=== PATIENT | female | born 1975 | race Two or more races ===

== ENCOUNTER → 2020-01-22 | Day surgery (SDC) | payer BC ==
[~2020-01-22] MED LIST: FENTANYL CITRATE/PF 100MCG/2 ML INJ ONE; HEPARIN 500 UNITS/5ML MDV INJ NR; LOSARTAN POTAS100 MG PO; LYRICA75 MG PO; METOPROLOL SUCC50 MG PO; MIDAZOLAM HCL 2 MG/2 ML VIAL ONE; NIFEDIPINE10 MG PO; OMEPRAZOLE40 MG PO; PROPOFOL IV EMULSION 10 MG/ML 50 ML VIAL ONE; ROPINIROLE HC0.25 MG PO; SODIUM CHLORIDE 0.9% 500ML 500 ML ONE
--- OUTSIDE RECORDS SUMMARY | 2020-01-22 07:06 | XMS REPORT ---
Author Author [facility] Address Unknown Phone Unavailable Care Team Providers Care Academic Affairs Manager Name Role Phone Unavailable Unavailable Payers Payer Name Policy Type Policy Number Effective Date Expiration Date Problems This patient has no known problems. Allergies, Adverse Reactions, Alerts Allergy Name Allergy Type Status Severity Reaction(s) Onset Date Inactive Date Treating Clinician Comments hydrocodone DA Active SV 2019-12-13 00:00:00 hydrocodone DA Active SV 2019-04-18 00:00:00 No Known Contrast Allergies DA Active U 2007-02-06 00:00:00 No Known Drug Allergies DA Active U 2007-02-06 00:00:00 No Known Food Allergies DA Active U 2007-02-06 00:00:00 No Known Other Allergies DA Active U 2007-02-06 00:00:00 Medications This patient has no known medications. Results Test Description Test Time Test Comments Text Results Atomic Results Result Comments COMPREHENSIVE METABOLIC PANEL 2020-01-10 10:36:00 SODIUM (test code=NA) 135 MMOL/L 136-143 POTASSIUM (test code=K) 4.3 MMOL/L 3.5-5.1 CHLORIDE (test code=CL) 98 MMOL/L 98-107 CARBON DIOXIDE (test code=CO2) 24 mmol/L 24-31 GLUCOSE (test code=GLU) 139 mg/dL 70-104 BLOOD UREA NITROGEN (test code=BUN) 22.8 MG/DL 7.0-21.0 GLOMERULAR FILTRATION RATE (test code=GFR) 14 >60 The estimated glomerular filtration rate is computed usingpatient race, age (>18), sex, and serum creatinine. If anyof the needed data elements are missing the Laboratory cannot compute an estimation of the glomerular filtration rate. CREATININE (test code=CREAT) 4.3 mg/dL 0.8-1.5 TOTAL PROTEIN (test code=PROT) 7.6 g/dL 6.3-8.3 ALBUMIN (test code=ALB) 2.9 G/DL 3.5-5.0 CALCIUM (test code=CA) 8.9 mg/dL 8.8-10.2 BILIRUBIN TOTAL (test code=BILT) 0.2 mg/dL 0.2-1.0 SGOT/AST (test code=AST) 8 IU/L 10-34 SGPT/ALT (test code=ALT) 7 U/L 10-36 ALKALINE PHOSPHATASE (test code=ALKP) 68 U/L 32-104 PROTHROMBIN [id number] 10:15:00* Test Item Value Reference Range Comments PROTHROMBIN TIME PATIENT (test code=PTP) 11.3 SECONDS 10.3-12.9 INTERNATIONAL NORMAL RATIO (test code=INR) 0.97 INR UNIT 0.9-1.11 The INR is useful only for monitoring anticoagulant therapy.It may be unreliable in the initial phase of antigoagulationand in unstable patients. Indication for Anticoagulation Recommended INR 1. Prevention of venous thomboembolism 2.0-3.0in high-risk patients; treatment of venousthrombosis and pulmonary embolism aftera course of heparin; prevention of systemicembolism in a variety of conditions, including atrial fibrillation and prothetic tissue heart valves, 2. Prosthetic mechanical heart valves; 2.5-3.5recurrent systemic embolism. THROMBOPLASTIN TIME [id number] 10:15:00* Test Item Value Reference Range Comments THROMBOPLASTIN TIME PARTIAL (test code=PTT) 102.9 SECONDS 26.0-35.9 Critical Value reported toFirst Name:VIRAL Last Name:FWARTRESULTS READ BACK AND VERIFIEDby AMARIS, on 01/10/20, @ 1015.INTERPRETATIVE DATA:Therapeutic range: Unfractionated heparin:47 - 71 seconds Argatroban:1.5 to 3 times the baseline PTT HCG SERUM [id number] 10:14:00* Test Item Value Reference Range Comments HCG SERUM QUAL (test code=HCGQL) NEGATIVE NEGATIVE DATE OF LAST MENSTRUAL PERIOD: 11/14/16COMMENTS: PT ON DEPO SHOT; UNABLE TO URIN ATE DUE TO ESRDCBC W/AUTO [id number] 09:42:00* Test Item Value Reference Range Comments WHITE BLOOD CELL (test code=WBC) 18.1 x10 3/uL 4.8-10.8 RED BLOOD CELL (test code=RBC) 3.30 x10 6/uL 4.20-5.40 HEMOGLOBIN (test code=HGB) 9.2 g/dL 14.5-20 HEMATOCRIT (test code=HCT) 30.2 % 37.0-47.0 MEAN CELL VOLUME (test code=MCV) 91.5 fL 81.0-99.0 MEAN CELL HGB (test code=MCH) 27.9 pg 27-31 MEAN CELL HGB CONCENTRATION (test code=MCHC) 30.5 G/DL 33-36.5 RED CELL DISTRIBUTION WIDTH (test code=RDW) 13.7 % 12.9-16.9 PLATELET COUNT (test code=PLT) 330 150-440 MEAN PLATELET VOLUME (test code=MPV) 9.6 fL 8.9-12.4 NEUTROPHIL % (test code=NT%) 78.8 % 42.2-75.2 LYMPHOCYTE % (test code=LY%) 13.5 % 20.5-51.1 MONOCYTE % (test code=MO%) 4.4 % 1.7-9.3 EOSINOPHIL % (test code=EO%) 2.3 % 0.0-7.0 BASOPHIL % (test code=BA%) 0.6 % 0-2.5 NEUTROPHIL # (test code=NT#) 14.29 x10 3/uL 1.80-7.70 LYMPHOCYTE # (test code=LY#) 2.45 x10 3/uL 1.00-4.80 MONOCYTE # (test code=MO#) 0.80 x10 3/uL 0.00-0.80 EOSINOPHIL # (test code=EO#) 0.42 x10 3/uL 0.00-0.45 BASOPHIL # (test code=BA#) 0.10 x10 3/uL 0.0-0.20 [id number] 17:18:00* Test Item Value Reference Range Comments GLUBED (test code=GLUBED) 150 MG/DL 70-105 [id number] 12:31:00* Test Item Value Reference Range Comments GLUBED (test code=GLUBED) 170 MG/DL 70-105 - XR FLUOROSCOPY 0-60 [id number] 08:45:00Patient Name: MEHDI GALLEGO Unit No: [id number] EXAMS: CPT CODE: [id number] XR FLUOROSCOPY 0-60 MIN 51549 R16 EXAM: - XR FLUOROSCOPY 0-60 MIN HISTORY: Tunneled catheter placement COMPARISON: Chest 2 views 12/12/2019 IMPRESSION: 1 intraoperative fluoroscopic image was obtained after placement of a right internal jugular tunneled dialysis catheter. The tip projects over the cavoatrial junction. See operative report for further details. Total fluoroscopy: 4 seconds, 1 mGy at 0845 Reported and signed by: BELKIS RUCKER M.D. CC: Alba Whitten; Allison Richardson MD Technologist: CESAR WILKERSON RT(R) Fluoro Time: DAP (Gy m2): Air Kerma (mGy): Trscr Dt/Tm: 12/14/2019 (0845) by:[email or web address] Printed Date/Time: 12/14/2019 (0848) Name: MEHDI AGLLEGO [facility] Phys: Alba Moran [address] : 1975 Age: 44 Sex: [place] [address] Loc: P.0721 1 Exam Date: 12/13/2019 Status: ADM IN PH: FAX: PAGE 1 Signed Report [id number] 08:33:00* Test Item Value Reference Range Comments GLUBED (test code=GLUBED) 139 MG/DL 70-105 [id number] 06:33:00* Test Item Value Reference Range Comments GLUBED (test code=GLUBED) 153 MG/DL 70-105 BASIC METABOLIC [id number] 06:25:00* Test Item Value Reference Range Comments SODIUM (test code=NA) 140 MMOL/L 136-143 POTASSIUM (test code=K) 4.4 MMOL/L 3.5-5.1 CHLORIDE (test code=CL) 100 MMOL/L 98-107 CARBON DIOXIDE (test code=CO2) 27 mmol/L 24-31 GLUCOSE (test code=GLU) 167 mg/dL 70-104 BLOOD UREA NITROGEN (test code=BUN) 28.7 MG/DL 7.0-21.0 GLOMERULAR FILTRATION RATE (test code=GFR) 13 >60 The estimated glomerular filtration rate is computed usingpatient race, age (>18), sex, and serum creatinine. If anyof the needed data elements are missing the Laboratory cannot compute an estimation of the glomerular filtration rate. CREATININE (test code=CREAT) 3.9 mg/dL 0.8-1.5 CALCIUM (test code=CA) 8.0 mg/dL 8.8-10.2 CBC W/AUTO [id number] 05:55:00* Test Item Value Reference Range Comments WHITE BLOOD CELL (test code=WBC) 15.6 x10 3/uL 4.8-10.8 RED BLOOD CELL (test code=RBC) 2.85 x10 6/uL 4.20-5.40 HEMOGLOBIN (test code=HGB) 8.0 g/dL 14.5-20 HEMATOCRIT (test code=HCT) 27.3 % 37.0-47.0 MEAN CELL VOLUME (test code=MCV) 95.8 fL 81.0-99.0 MEAN CELL HGB (test code=MCH) 28.1 pg 27-31 MEAN CELL HGB CONCENTRATION (test code=MCHC) 29.3 G/DL 33-36.5 RED CELL DISTRIBUTION WIDTH (test code=RDW) 14.6 % 12.9-16.9 PLATELET COUNT (test code=PLT) 300 150-440 MEAN PLATELET VOLUME (test code=MPV) 9.7 fL 8.9-12.4 NEUTROPHIL % (test code=NT%) 77.4 % 42.2-75.2 LYMPHOCYTE % (test code=LY%) 13.2 % 20.5-51.1 MONOCYTE % (test code=MO%) 5.6 % 1.7-9.3 EOSINOPHIL % (test code=EO%) 2.8 % 0.0-7.0 BASOPHIL % (test code=BA%) 0.6 % 0-2.5 NEUTROPHIL # (test code=NT#) 12.02 x10 3/uL 1.80-7.70 LYMPHOCYTE # (test code=LY#) 2.06 x10 3/uL 1.00-4.80 MONOCYTE # (test code=MO#) 0.87 x10 3/uL 0.00-0.80 EOSINOPHIL # (test code=EO#) 0.44 x10 3/uL 0.00-0.45 BASOPHIL # (test code=BA#) 0.10 x10 3/uL 0.0-0.20 [id number] 23:38:00* Test Item Value Reference Range Comments GLUBED (test code=GLUBED) 180 MG/DL 70-105 [id number] 18:08:00* Test Item Value Reference Range Comments GLUBED (test code=GLUBED) 106 MG/DL 70-105 [id number] 14:52:00* Test Item Value Reference Range Comments GLUBED (test code=GLUBED) 110 MG/DL 70-105 AB HEPATITIS B [id number] 13:09:00* Test Item Value Reference Range Comments AB HEPATITIS B SURFACE (test code=HBSAB) REACTIVE NONREACTIVE AG HEPATITIS B [id number] 13:09:00* Test Item Value Reference Range Comments AG HEPATITIS B SURFACE (test code=HBSAG) NON-REACTIVE NONREACTIVE AB HEPATITIS B [id number] 13:07:00* Test Item Value Reference Range Comments AB HEPATITIS B SURFACE (test code=HBSAB) REACTIVE NONREACTIVE AG HEPATITIS B [id number] 13:07:00* Test Item Value Reference Range Comments AG HEPATITIS B SURFACE (test code=HBSAG) NONREACTIVE BASIC METABOLIC [id number] 12:55:00* Test Item Value Reference Range Comments SODIUM (test code=NA) 140 MMOL/L 136-143 POTASSIUM (test code=K) 4.7 MMOL/L 3.5-5.1 CHLORIDE (test code=CL) 99 MMOL/L 98-107 CARBON DIOXIDE (test code=CO2) 29 mmol/L 24-31 GLUCOSE (test code=GLU) 116 mg/dL 70-104 BLOOD UREA NITROGEN (test code=BUN) 36.5 MG/DL 7.0-21.0 GLOMERULAR FILTRATION RATE (test code=GFR) 11 >60 The estimated glomerular filtration rate is computed usingpatient race, age (>18), sex, and serum creatinine. If anyof the needed data elements are missing the Laboratory cannot compute an estimation of the glomerular filtration rate. CREATININE (test code=CREAT) 4.6 mg/dL 0.8-1.5 CALCIUM (test code=CA) 7.4 mg/dL 8.8-10.2 LACTIC [id number] 12:55:00* Test Item Value Reference Range Comments LACTIC ACID (test code=LACT) 10.4 mg/dL 4.5-18.0 - DUP VEIN [id number] 10:17:00Patient Name: MEHDI GALLEGO Unit No: [id number] EXAMS: CPT CODE: [id number] DUP VEIN CHRIST 10891 Indication: arm swelling TECHNIQUE: Color flow Doppler and Doppler spectral waveform analysis of the bilateral upper extremity venous system were acquired. In addition, compression, augmentation and response to Valsalva techniques were employed. COMPARISON: None FINDINGS: The lateral upper extremity veins demonstrate normal caliber and wall thickness. Specifically, the bilateral subclavian, axillary, brachial, basilic and cephalic veins are patent and demonstrate compressibility. The right internal jugular is not evaluated due to obscuring bandages. The left internal jugular appears to be patent. Color flow Doppler demonstrates normal venous flow without intraluminal thrombus. There is normal venous compression and distal augmentation. Doppler spectral waveform demonstrates normal venous respiratory phasicity. There is a 4.5 x 1.0 x 1.8 cm hypoechoic subcutaneous collection along the left axilla. IMPRESSION: 1. No evidence of deep venous throm bophlebitis in either upper extremity. 2. The right internal ju gular is not seen due to obscuring bandages. 3. There is a 4.5 x 1.0 x 1.8 cm subcutaneous collection along the left axilla, possibly small hem atoma.. at 1 017 Reported and signed by: Jonathan Garcia MD CC: Alba Whitten; Allison Richardson MD Technologist: Simi Ortega Probe: Trslalitha Dt/Tm: 12/13/2019 (1017) by:[email or web address] Printed Date/Time: 12/13/2019 (1027) Name: MEHDI GALLEGO [facility] Phys: Allison Chan MD [address] : 1975 Age: 44 Sex: [place]cd[place] [address] Loc: P.0721 1 Exam Date: 12/13/2019 Status: ADM IN PH: FAX: PAGE 1 Signed Report [id number] 10:00:00* Test Item Value Reference Range Comments GLUBED (test code=GLUBED) 125 MG/DL 70-105 [id number] 06:17:00* Test Item Value Reference Range Comments GLUBED (test code=GLUBED) 123 MG/DL 70-105 CBC W/AUTO [id number] 05:26:00* Test Item Value Reference Range Comments WHITE BLOOD CELL (test code=WBC) 21.4 x10 3/uL 4.8-10.8 RED BLOOD CELL (test code=RBC) 2.92 x10 6/uL 4.20-5.40 HEMOGLOBIN (test code=HGB) 8.1 g/dL 14.5-20 HEMATOCRIT (test code=HCT) 27.6 % 37.0-47.0 MEAN CELL VOLUME (test code=MCV) 94.5 fL 81.0-99.0 MEAN CELL HGB (test code=MCH) 27.7 pg 27-31 MEAN CELL HGB CONCENTRATION (test code=MCHC) 29.3 G/DL 33-36.5 RED CELL DISTRIBUTION WIDTH (test code=RDW) 14.7 % 12.9-16.9 PLATELET COUNT (test code=PLT) 328 150-440 MEAN PLATELET VOLUME (test code=MPV) 9.5 fL 8.9-12.4 NEUTROPHIL % (test code=NT%) 77.0 % 42.2-75.2 LYMPHOCYTE % (test code=LY%) 13.7 % 20.5-51.1 MONOCYTE % (test code=MO%) 5.3 % 1.7-9.3 EOSINOPHIL % (test code=EO%) 2.8 % 0.0-7.0 BASOPHIL % (test code=BA%) 0.6 % 0-2.5 NEUTROPHIL # (test code=NT#) 16.47 x10 3/uL 1.80-7.70 LYMPHOCYTE # (test code=LY#) 2.94 x10 3/uL 1.00-4.80 MONOCYTE # (test code=MO#) 1.13 x10 3/uL 0.00-0.80 EOSINOPHIL # (test code=EO#) 0.59 x10 3/uL 0.00-0.45 BASOPHIL # (test code=BA#) 0.13 x10 3/uL 0.0-0.20 [id number] 23:15:00* Test Item Value Reference Range Comments GLUBED (test code=GLUBED) 308 MG/DL 70-105 URINALYSIS [id number] 12:23:00* Test Item Value Reference Range Comments UA COLOR (test code=COLU) YELLOW DISCRIPT YELLOW UA APPEARANCE (test code=APPU) CLEAR DISCRIPT CLEAR UA GLUCOSE DIPSTICK (test code=DGLUU) 250 mg/dL NEGATIVE UA BILIRUBIN DIPSTICK (test code=BILU) NEGATIVE NEGATIVE UA KETONE DIPSTICK (test code=KETU) NEGATIVE mg/dL NEGATIVE UA SPECIFIC GRAVITY (test code=SGU) 1.020 1.005-1.030 UA BLOOD DIPSTICK (test code=JEREMIE) SMALL NEGATIVE UA PH DIPSTICK (test code=CARMINE) 7.5 5.0-9.0 UA PROTEIN DIPSTICK (test code=PROU) >=300 mg/dL NEGATIVE UA UROBILINOGEN DIPSTICK (test code=URO) 0.2 mg/dL 0.2-1.0 UA NITRITE DIPSTICK (test code=CARI) NEGATIVE NEGATIVE UA LEUKOCYTE ESTERASE DIPSTICK (test code=LEUU) NEGATIVE NEGATIVE UA [id number] 12:23:00* Test Item Value Reference Range Comments UA WBC (test code=WBCU) 3-5 #WBC/HPF 0-2 UA RBC (test code=RBCU) 3-5 #RBC/HPF 0-2 UA BACTERIA (test code=BACU) OCCASIONAL /HPF NONE-TRACE UA SQUAMOUS CELLS (test code=SQU) 1+ /LPF NONE-TRACE UA MUCUS (test code=MUCU) 1+ /LPF NONE SEEN URINALYSIS [id number] 11:44:00* Test Item Value Reference Range Comments UA COLOR (test code=COLU) YELLOW DISCRIPT YELLOW UA APPEARANCE (test code=APPU) CLEAR DISCRIPT CLEAR UA GLUCOSE DIPSTICK (test code=DGLUU) 250 mg/dL NEGATIVE UA BILIRUBIN DIPSTICK (test code=BILU) NEGATIVE NEGATIVE UA KETONE DIPSTICK (test code=KETU) NEGATIVE mg/dL NEGATIVE UA SPECIFIC GRAVITY (test code=SGU) 1.020 1.005-1.030 UA BLOOD DIPSTICK (test code=JEREMIE) SMALL NEGATIVE UA PH DIPSTICK (test code=CARMINE) 7.5 5.0-9.0 UA PROTEIN DIPSTICK (test code=PROU) >=300 mg/dL NEGATIVE UA UROBILINOGEN DIPSTICK (test code=URO) 0.2 mg/dL 0.2-1.0 UA NITRITE DIPSTICK (test code=CARI) NEGATIVE NEGATIVE UA LEUKOCYTE ESTERASE DIPSTICK (test code=LEUU) NEGATIVE NEGATIVE UA [id number] 11:44:00* Test Item Value Reference Range Comments UA WBC (test code=WBCU) #WBC/HPF 0-2 UA RBC (test code=RBCU) #RBC/HPF 0-2 UA BACTERIA (test code=BACU) /HPF NONE-TRACE UA SQUAMOUS CELLS (test code=SQU) /LPF NONE-TRACE URINALYSIS [id number] 11:44:00* Test Item Value Reference Range Comments UA COLOR (test code=COLU) YELLOW DISCRIPT YELLOW UA APPEARANCE (test code=APPU) CLEAR DISCRIPT CLEAR UA GLUCOSE DIPSTICK (test code=DGLUU) 250 mg/dL NEGATIVE UA BILIRUBIN DIPSTICK (test code=BILU) NEGATIVE NEGATIVE UA KETONE DIPSTICK (test code=KETU) NEGATIVE mg/dL NEGATIVE UA SPECIFIC GRAVITY (test code=SGU) 1.020 1.005-1.030 UA BLOOD DIPSTICK (test code=JEREMIE) SMALL NEGATIVE UA PH DIPSTICK (test code=CARMINE) 7.5 5.0-9.0 UA PROTEIN DIPSTICK (test code=PROU) >=300 mg/dL NEGATIVE UA UROBILINOGEN DIPSTICK (test code=URO) 0.2 mg/dL 0.2-1.0 UA NITRITE DIPSTICK (test code=CARI) NEGATIVE NEGATIVE UA LEUKOCYTE ESTERASE DIPSTICK (test code=LEUU) NEGATIVE NEGATIVE UA [id number] 11:44:00* Test Item Value Reference Range Comments UA WBC (test code=WBCU) #WBC/HPF 0-2 UA RBC (test code=RBCU) #RBC/HPF 0-2 UA BACTERIA (test code=BACU) /HPF NONE-TRACE UA SQUAMOUS CELLS (test code=SQU) /LPF NONE-TRACE - XR CHEST 2 [id number] 11:44:00Patient Name: MEHDI GALLEGO Unit No: [id number] EXAMS: CPT CODE: [id number] XR CHEST 2 V 86692 INDICATION: acute SOB COMPARISON: Comparison is made with previous study of 04/18/2019 Location: W1 FINDINGS: PA and lateral views of the chest are presented. The heart size is slightly enlarged with a normal cardiomediastinal contour. The lung anthony are clear. No apparent pleural effusion nor pneumothorax. The bony structures are unremarkable. IMPRESSION: No acute cardiopulmonary abnormality seen. at 1144 Reported and signed by: Jonathan Garcia MD CC: Pancho Colindres MD; Paris Odom MD; Allison Richardson MD Technologist: Sumit Carrero Time: DAP (Gy m2): Air Kerma (mGy): Trscr Dt/Tm: 12/12/2019 (1144) by:[email or web address] Printed Date/Time: 12/12/2019 (1148) Name: MEHDI GALLEGO [facility] Phys: Paris Mortensen MD [address] : 1975 Age: 44 Sex: [place] [address] Loc: P.ERS Exam Date: 12/12/2019 Status: REG ER PH: FAX: PAGE 1 Signed Report COMPREHENSIVE METABOLIC [id number] 11:42:00* Test Item Value Reference Range Comments SODIUM (test code=NA) 138 MMOL/L 136-143 POTASSIUM (test code=K) 4.6 MMOL/L 3.5-5.1 CHLORIDE (test code=CL) 97 MMOL/L 98-107 CARBON DIOXIDE (test code=CO2) 29 mmol/L 24-31 GLUCOSE (test code=GLU) 177 mg/dL 70-104 BLOOD UREA NITROGEN (test code=BUN) 33.8 MG/DL 7.0-21.0 GLOMERULAR FILTRATION RATE (test code=GFR) 12 >60 The estimated glomerular filtration rate is computed usingpatient race, age (>18), sex, and serum creatinine. If anyof the needed data elements are missing the Laboratory cannot compute an estimation of the glomerular filtration rate. CREATININE (test code=CREAT) 4.2 mg/dL 0.8-1.5 TOTAL PROTEIN (test code=PROT) 6.3 g/dL 6.3-8.3 ALBUMIN (test code=ALB) 2.4 G/DL 3.5-5.0 CALCIUM (test code=CA) 7.6 mg/dL 8.8-10.2 BILIRUBIN TOTAL (test code=BILT) 0.2 mg/dL 0.2-1.0 SGOT/AST (test code=AST) 11 IU/L 10-34 SGPT/ALT (test code=ALT) 14 U/L 10-36 ALKALINE PHOSPHATASE (test code=ALKP) 93 U/L 32-104 [id number] 11:42:00* Test Item Value Reference Range Comments PHOSPHOROUS (test code=PHOS) 5.2 mg/dL 2.7-4.5 [id number] 11:42:00* Test Item Value Reference Range Comments MAGNESIUM (test code=MAG) 1.5 mg/dL 1.4-2.6 PROTHROMBIN [id number] 11:12:00* Test Item Value Reference Range Comments PROTHROMBIN TIME PATIENT (test code=PTP) 11.0 SECONDS 10.3-12.9 INTERNATIONAL NORMAL RATIO (test code=INR) 0.95 INR UNIT 0.9-1.11 The INR is useful only for monitoring anticoagulant therapy.It may be unreliable in the initial phase of antigoagulationand in unstable patients. Indication for Anticoagulation Recommended INR 1. Prevention of venous thomboembolism 2.0-3.0in high-risk patients; treatment of venousthrombosis and pulmonary embolism aftera course of heparin; prevention of systemicembolism in a variety of conditions, including atrial fibrillation and prothetic tissue heart valves, 2. Prosthetic mechanical heart valves; 2.5-3.5recurrent systemic embolism. THROMBOPLASTIN TIME [id number] 11:12:00* Test Item Value Reference Range Comments THROMBOPLASTIN TIME PARTIAL (test code=PTT) SECONDS 26.0-35.9 PROTHROMBIN [id number] 11:12:00* Test Item Value Reference Range Comments PROTHROMBIN TIME PATIENT (test code=PTP) 11.0 SECONDS 10.3-12.9 INTERNATIONAL NORMAL RATIO (test code=INR) 0.95 INR UNIT 0.9-1.11 The INR is useful only for monitoring anticoagulant therapy.It may be unreliable in the initial phase of antigoagulationand in unstable patients. Indication for Anticoagulation Recommended INR 1. Prevention of venous thomboembolism 2.0-3.0in high-risk patients; treatment of venousthrombosis and pulmonary embolism aftera course of heparin; prevention of systemicembolism in a variety of conditions, including atrial fibrillation and prothetic tissue heart valves, 2. Prosthetic mechanical heart valves; 2.5-3.5recurrent systemic embolism. THROMBOPLASTIN TIME [id number] 11:12:00* Test Item Value Reference Range Comments THROMBOPLASTIN TIME PARTIAL (test code=PTT) 30.9 SECONDS 26.0-35.9 INTERPRETATIVE DATA:Therapeutic range: Unfractionated heparin:47 - 71 seconds Argatroban:1.5 to 3 times the baseline PTT CBC W/AUTO [id number] 11:00:00* Test Item Value Reference Range Comments WHITE BLOOD CELL (test code=WBC) 24.0 x10 3/uL 4.8-10.8 RED BLOOD CELL (test code=RBC) 3.18 x10 6/uL 4.20-5.40 HEMOGLOBIN (test code=HGB) 9.0 g/dL 14.5-20 HEMATOCRIT (test code=HCT) 29.9 % 37.0-47.0 MEAN CELL VOLUME (test code=MCV) 94.0 fL 81.0-99.0 MEAN CELL HGB (test code=MCH) 28.3 pg 27-31 MEAN CELL HGB CONCENTRATION (test code=MCHC) 30.1 G/DL 33-36.5 RED CELL DISTRIBUTION WIDTH (test code=RDW) 14.5 % 12.9-16.9 PLATELET COUNT (test code=PLT) 312 150-440 MEAN PLATELET VOLUME (test code=MPV) 9.3 fL 8.9-12.4 NEUTROPHIL % (test code=NT%) 81.4 % 42.2-75.2 LYMPHOCYTE % (test code=LY%) 10.0 % 20.5-51.1 MONOCYTE % (test code=MO%) 4.7 % 1.7-9.3 EOSINOPHIL % (test code=EO%) 2.3 % 0.0-7.0 BASOPHIL % (test code=BA%) 0.5 % 0-2.5 NEUTROPHIL # (test code=NT#) 19.53 x10 3/uL 1.80-7.70 LYMPHOCYTE # (test code=LY#) 2.39 x10 3/uL 1.00-4.80 MONOCYTE # (test code=MO#) 1.13 x10 3/uL 0.00-0.80 EOSINOPHIL # (test code=EO#) 0.55 x10 3/uL 0.00-0.45 BASOPHIL # (test code=BA#) 0.13 x10 3/uL 0.0-0.20
[2020-01-22 08:16] LABS: BASOPHILS # (AUTO) 0.1 (0.0-0.1); BASOPHILS % 0.6 % (0.0-1.0); EOSINOPHILS # (AUTO) 0.6 (0.0-0.4); EOSINOPHILS % 3.5 % (0.0-6.0); HEMATOCRIT 29.6 % (34.2-44.1); HEMOGLOBIN 9.2 g/dL (12.0-16.0); LYMPHOCYTES # (AUTO) 3.6 (1.0-3.2); MEAN CORPUSCULAR HEMOGLOBIN 28.4 pg (28-32); MEAN CORPUSCULAR HGB CONC 31.1 g/dL (31-35); MEAN CORPUSCULAR VOLUME 91.4 fL (81-99); MONOCYTES % 5.7 % (4.4-11.3); NEUTROPHILS # (AUTO) 11.7 (2.1-6.9); NEUTROPHILS % 68.4 % (38.7-80.0); PLATELET COUNT 374 x10e3/uL (140-360); RED BLOOD COUNT 3.24 x10e6/uL (3.6-5.1); RED CELL DISTRIBUTION WIDTH 13.6 % (11.7-14.4)
[2020-01-22 08:33] LABS: INR 0.97; PROTHROMBIN TIME 13.5 seconds (11.9-14.5)
[2020-01-22 08:34] LABS: PARTIAL THROMBOPLASTIN TIME 31.1 seconds (23.8-35.5)
[2020-01-22 08:46] LABS: ANION GAP 15.9 mmol/L (8-16); CALCIUM 9.2 mg/dL (8.4-10.2); CREATININE, SERUM 5.27 mg/dL (0.57-1.11); POTASSIUM 4.9 mmol/L (3.5-5.1)
[2020-01-22 11:20] VITALS: BP 149/84
== END | disposition home or self-care (01) ==
LOC: OR 06:14
PROVIDERS: ATTEND Internal Medicine Gastroenterology
DX: R19.7 Diarrhea, unspecified (principal); D12.0 Benign neoplasm of cecum; D12.3 Benign neoplasm of transverse colon; D12.4 Benign neoplasm of descending colon; K31.7 Polyp of stomach and duodenum; K29.60 Other gastritis without bleeding; K29.80 Duodenitis without bleeding; K22.8 Other specified diseases of esophagus; K44.9 Diaphragmatic hernia without obstruction or gangrene; K57.30 Diverticulosis of large intestine without perforation or abscess without bleeding; K64.8 Other hemorrhoids; E11.22 Type 2 diabetes mellitus with diabetic chronic kidney disease; I12.0 Hypertensive chronic kidney disease with stage 5 chronic kidney disease or end stage renal disease; N18.6 End stage renal disease; R53.1 Weakness; F32.9 Major depressive disorder, single episode, unspecified; F41.9 Anxiety disorder, unspecified; R06.02 Shortness of breath; Z88.6 Allergy status to analgesic agent; Z01.810 Encounter for preprocedural cardiovascular examination; Z79.4 Long term (current) use of insulin; Z99.2 Dependence on renal dialysis; Z87.01 Personal history of pneumonia (recurrent); Z68.43 Body mass index [BMI] 50.0-59.9, adult
CPT/HCPCS: 36415; 43239; 45380; 45384; 45385; 80048; 84702; 85025; 85610; 85730; 93005; J2250; J2704; J3010; J7040; 45378